=== PATIENT | male | born 1940 | race Caucasian/White ===

== ENCOUNTER → 2024-02-15 12:44 | Day surgery (SDC) | payer SELFPAY ==
[2024-02-15] VITALS (10 sets, daily range): BP systolic 123–191; BP diastolic 67–90; BMI 23.9
--- NOTE | 2024-02-15 16:54 | SUR.PHASEI ---
pt discharged via ambulance transfer back to [facility] at 1640
== END ==
LOC: SDS 12:44
PROVIDERS: ATTENDING PHYSICIAN Internal Medicine Cardiovascular Disease
DX: K80.70 Calculus of gallbladder and bile duct without cholecystitis without obstruction (principal); R74.8 Abnormal levels of other serum enzymes; R93.2 Abnormal findings on diagnostic imaging of liver and biliary tract
CPT/HCPCS: 43264; 43237; 74330; 76000; C1769

== ENCOUNTER 2024-08-02 14:40 | Inpatient (IN) | payer MEDICARE, OTHER, SELFPAY ==
[2024-08-02] VITALS (11 sets, daily range): BP systolic 107–142; BP diastolic 61–101; BMI 23.5
--- NOTE | 2024-08-02 10:23 | W.PN.CARDCBS ---
Today's Communication / Plan
-
PCI VG-OM today
Impression / Plan
-
This is a summary, see scanned H&P
Primary care physician: Bo Wolf MD
Primary appraiser irrigation tax: Alvarado Church MD
HPI: 84-year-old gentleman has a PMH including Permanent AFib (on Eliquis 2.5 mg bid, Diltiazem 360 daily, and Toprol 100 mg daily); Permanent Pacemaker with recent generator change on 07/21/[address] Church; CAD s/p CABGx4 2005; HTN;
hypercholesterolemia; renal insufficiency; and s/p cholecystectomy, TIA, suspected PAD, multiple back surgeries. The patient presented to [facility] ER 07/31 with complaints of chest pain that developed that morning during breakfast. He took his normal
dose of Eliquis prior to arrival 07/31. EKG revealed V-paced with HR 71. CXR showed stable elevation of right hemidiaphragm. CTA of the chest revealed mild cardiomegaly, atherosclerotic coronary artery calcification; no evidence of PE. D-Dimer was
0.61; trop peaked at 1469. He underwent C 08/01 with severe stenosis of VG to . He is being transferred to for high risk PCI of VG today.
Impression:
NSTEMI
CAD/CABG x4 2004
LHC 08/01 with 95% stenosis of sequential VG to OM
HTN
Hypercholesterolemia
Permanent AF with VVIR pacemaker
CKD 3
Hx of TIA
Cognitive dysfunction
Multiple back surgeries with intermittent RLE pain/neuropathy
Plan:
Transfer for PCI VG to today
Admit IVU post procedure
Loaded with Plavix 600mg 08/01, did not receive ASA yesterday or today will give 325mg now
Continue DAPT ASA/Plavix, Eliquis resume per interventional cardiology
triples for 1 week then Eliquis/Plavix
Stop simvastatin, switch to atorvastatin
Continue metoprolol, losartan and new to amlodipine 5mg
In permanent AF with demand V pacing-On low dose Eliquis
Cardiac rehab c/s
f/u [facility] at d/c
DATA:
08/01 Echo: HK of basal and mid inferior, IS, inferolateral segments, preserved EF 50-55%, RV function normal, no significant valve disease
08/01 LHC:
Coronary Angiography:
Dominance: Right
Left Main: Severe diffuse calcified 70 to 80% stenosis.
Left Anterior Descending: The left anterior descending artery is occluded after the takeoff of a small caliber high first diagonal branch, small caliber second diagonal branch, and first major septal rn document improvement specialist. These vessels are very small caliber
with severe diffuse disease but normal KIRSTIN-3 flow.
Left Circumflex: Flush ostial occlusion
Right Coronary: Proximal total occlusion
[place] to LAD: The graft is widely patent. The [place] LAD is extremely small caliber with severe diffuse disease and limited vascular supply. No option for percutaneous intervention due to the small diffuse nature of the [place] vessel disease.
Free radial to PDA: Widely patent. Engaged with a 5 Macedonian multipurpose diagnostic catheter. The anastomosis is at the mid portion of the posterior descending artery and retrograde fills to medium caliber right sided posterior left ventricular
branches.
SVG to diagonal sequential to major obtuse marginal branch: The graft itself is widely patent with mild ostial/proximal 30% stenosis. The first jump shows no filling of the grafted diagonal branch but the graft continues onto anastomosis in the
medium caliber distal OM. There is a preocclusive 95% stenosis in the body of the graft just proximal to the distal anastomosis. The [place] distal vessel has smooth 50% stenosis with normal flow and to distal branches.
Progress Note - Mergers And Acquisitions Manager
Subjective
Date of Service: August 02, 2024
denies cp, sob
Physical Exam
Physical Exam
Deferred as being prepped and draped on laborer general table
--- NOTE | 2024-08-02 14:32 | ITS.CL.ANGIO ---
Liquefied Petroleum Gasfitter - Angioplasty
Angioplasty
Procedure Report:
LEFT HEART CATHETERIZATION
Date of Procedure: August 02, 2024
Procedures performed:
1: Complex percutaneous coronary intervention of the saphenous vein graft to the obtuse marginal branch with placement of a 3.5 x 12 mm Navid drug-eluting stent
Primary Care Physician: Dr. Bo Wolf
Primary Broodmare Foreman: Myself
INDICATION: The patient is an 84-year-old male with a complex past medical history including a recent non-STEMI and permanent atrial fibrillation status post pacemaker placement who underwent diagnostic cath at [facility] yesterday which
revealed a critical vein graft lesion to the OM. In light of the complexity of the intervention he was transferred to [place] for PCI today. He was pretreated with aspirin and Plavix.
ACCESS: The patient was prepped and draped in usual sterile fashion. A 6 [place] Irish sheath was placed in the right radial artery using the Seldinger over the wire technique.
HEMODYNAMIC FINDINGS (mmHg):
Ao(s/d,m): 112/60, 80
ANGIOGRAPHIC FINDINGS:
Coronary Angiography:
Please refer to full diagnostic study performed yesterday at [facility]
Percutaneous Coronary Intervention (PCI): The patient was pretreated with aspirin and Plavix. With some difficulty a 6 Northern Irish JR4 guiding catheter was used to poorly engage the ostium of the vein graft takeoff. A short BMW wire was successfully
advanced into the proximal portion of the graft. This was stabilized with a 2.0 x 12 mm balloon which facilitated delivery of a 6 [place] Irish Guideliner for backup support. With better support, I was able to to wire the distal vein graft lesion with a
BMW wire. Predilation was performed with the 2.0 balloon. Attempts to advance a stent were unsuccessful due to poor backup support. A 3.0 x 12 mm balloon was used to redilate the culprit distal lesion and a pin and pull advancement of the
Guideliner down to the lesion itself. The 3.5 x 12 mm Navid was then successfully delivered and deployed at 12 agustín.
FINAL RESULT: 0% in-stent residual stenosis with KIRSTIN-3 distal flow. Of note, the patient experienced no chest pain during the procedure and the lesion behaved like a chronic lesion as opposed to the culprit in his recent non-STEMI. There was air
embolization into the distal graft which persisted but was not associated with any flow limitation so was left untreated. The patient remained asymptomatic without symptoms.
Fluoroscopy Time (min): 16.6
Radiation Dose (mGy): 454
DAP (Gy.cm2): 44
Closure device: None. A TR band was applied for hemostasis at the right wrist.
Complications: None.
ASSESSMENT:
1: Successful PCI of the SVG to OM with placement of drug-eluting stent as described above.
CONCLUSIONS and RECOMMENDATIONS:
1: Routine post non-STEMI and post drug-eluting stent medical therapy and monitoring. I will plan to give triple therapy with Eliquis, Plavix, and aspirin for 1 week followed by Eliquis and Plavix for a year.
Carla Church M.D.
Copy to: Dr. Bo Wolf
[2024-08-02] MEDS: NSS 1000 IV (15:02)
--- NOTE | 2024-08-02 16:06 | PTCARENOTE ---
Patient received from the section laborer. Right radial band intact. VSS, CHEMIST PHYSICAL, underlying A-fib, BBB, IVF infusing, pain free, call rodriguez in reach
[2024-08-02] MEDS: ELIQUIS 2.5 MG PO (23:31)
--- NOTE | 2024-08-03 00:16 | PTCARENOTE ---
Rec'd pt at change of shift. Pt on TELE monitor in VPace rhythm with PPM (not from current admission), VSS, and AAO*3. Previous RN had difficulty removing R band due to bleeding. Right radial site currently off with dressing CDI. Pt aware of
activity restrictions and agreed to call for staff assistance before ambulation. Rec'd verbal order from dr Tripp for Eliquis 2.5 PO one time and given as ordered. Pt resting with call rodriguez in reach. Plan of care ongoing.
[2024-08-03 02:48] VITALS: BP 149/64
[2024-08-03 03:00] VITALS: BP 149/64
[2024-08-03 04:23] LABS: Blood Urea Nitrogen 45 mg/dl (9-20); Calcium 9.4 mg/dl (8.4-10.2); Carbon Dioxide 24 mmol/L (22-30); Chloride 106 mmol/L (98-107); Estimated Creatinine Clearance 34 ml/min; Glucose 104 mg/dl (70-99); Potassium 4.2 mmol/L (3.5-5.1); Sodium 142 mmol/L (135-145); eGFR 45.62
[2024-08-03 05:13] LABS: Hematocrit 35.5 % (39.0-52.0); Hemoglobin 12.6 g/dL (13.0-18.0); Mean Corp Hgb Conc. 35.5 g/dL (33.0-37.0); Mean Corpuscular Hgb 32.6 pg (27.0-31.0); Mean Platelet Volume 11.1 fL (7.4-10.4); Platelet Count 143 10^3/uL (130-400); Red Blood Cell Count 3.86 10^6/uL (4.70-6.10); White Blood Cell Count 8.9 10^3/uL (4.8-10.8)
--- NOTE | 2024-08-03 05:20 | DOWNTIME ---
There was a [employer] Client Chief Deputy Clerk/Bailiff Downtime on 08/03/2024 from 0100 to 08/03/2024 at 0355. Downtime documentation of patient's care, including medication administrations, has been reconciled in the electronic record per guidelines. Refer to the
patient's paper chart under the miscellaneous tab to see printed paper medication records and downtime forms.
[2024-08-03 06:49] VITALS: BP 158/68
--- NOTE | 2024-08-03 07:44 | W.PN.CARDCBS ---
Addendum entered and electronically signed by SAAD Becerra 08/03/24 11:52:
ADD: amlodipine was started at [facility] but not continued here. Will hold off on starting and re-eval in outpt setting.
Addendum entered and electronically signed by Donnell Tripp DO 08/03/24 11:21:
I saw and examined the patient.
The Underlay Stitcher's note was reviewed and I agree with the note.
Comment:
Plan:
After discussion with Dr Church, ok for ASA, Plavix and Eliquis for one week and then DAPT.
Groin stable.
Reviewed cath with pt.
Outpt follow up with Dr Church
Stable for d/c.
Original Note:
Today's Communication / Plan
-
HOLD eliquis until groin check 08/05
DAPT w/asa, plavix for now, then triples for a week, then plavix/eliquis only
Followup w/Dr. Church as scheduled
home today
Impression / Plan
-
PCP: Bo Wolf MD
CDY: Alvarado Church MD
The patient is an 84-year-old male with a complex PMH sig for AFib, prior PPM, CAD w/CAB x4 (2004), new onset chest pain and presented to [facility] ER. HS troponin 1469, EKG VPaced 70s, no acute changes.
LHC via RFA on 08/01 at [facility] revealed critical vein graft lesion to OM. Due to complex nature of stenosis, pt transferred to for PCI.
LHC 08/02 at - s/p complex PCI of SVG-OM w/FRANSISCA
IMPRESSION:
NSTEMI, 08/01/24
CAD w/CABG x4 (2004)
S/P complex VG-OM PCI w/FRANSISCA, 08/02/24
tele- VPaced, underlying AFib
radial cath site oozy post cath but now stable
Groin stable from prior cath- eliquis resumed last evening
Triple therapy with asa, plavix, eliquis x 1 week, then plavix/eliquis only
continue metoprolol xl 100/d, losartan 100/d
cardiac rehab consult
Followup- 08/05 groin check at [facility]
home today
HTN- stable BP on current meds
new to amlodipine 5/d
HLD- stop simvastatin, started atorvastatin 40/d
Permanent AF, prior PPM implant (gen change 07/21/24)
continue diltiazem
[id number]
triples as noted with eliquis 2.5mg BID (age, creat)
CKD3b- stable post dye load
Prior TIA
Cognitive dysfunction
Multiple back surgeries with intermittent RLE pain/neuropathy
PREADMIT DATA:
08/01 Echo: HK of basal and mid inferior, IS, inferolateral segments, preserved EF 50-55%, RV function normal, no significant valve disease
Progress Note - Community Health Agent
Subjective
Date of Service: August 03, 2024
Denies cp/palps/dyspnea
radial and femoral cath sites stable
oob ambulating
Objective
Labs:
08/03/24 03:05
08/03/24 03:05
Labs
Hgb 12.6 g/dL (13.0-18.0) L 08/03/24 03:05
Hct 35.5 % (39.0-52.0) L 08/03/24 03:05
Plt Count 143 10^3/uL (130-400) 08/03/24 03:05
Sodium 142 mmol/L (135-145) 08/03/24 03:05
Potassium 4.2 mmol/L (3.5-5.1) 08/03/24 03:05
BUN 45 mg/dl (9-20) H 08/03/24 03:05
Creatinine 1.5 mg/dL (0.7-1.3) H 08/03/24 03:05
Glucose 104 mg/dl (70-99) H 08/03/24 03:05
Vital Signs and I&O:
Vital Signs
Temp Pulse Resp BP Pulse Ox
98.6 F 70 20 149/64 98
08/03/24 06:48 08/03/24 04:00 08/03/24 06:48 08/03/24 03:00 08/03/24 06:48
Vital Signs
Temp Pulse Resp BP Pulse Ox
98.6 F 70 20 149/64 98
08/03/24 06:48 08/03/24 04:00 08/03/24 06:48 08/03/24 03:00 08/03/24 06:48
Intake & Output
08/01/24 08/02/24 08/03/24 08/04/24
06:59 06:59 06:59 06:59
Intake Total 790 / 790
Output Total 450 / 450
Balance 340 / 340
Physical Exam
Physical Exam
AAOx3, MAEE 5/5
RRR S1 S2 no murmurs
CTA bilat, non labored
soft abd, + bs
right radial cath site no ht/bleeding, non tender
right femoral cath site no ht/bleeding, non tender
bilat extremities w/palpable distal pulses, no edema
--- NOTE | 2024-08-03 08:55 | PTCARENOTE ---
Received patient this morning resting in bed. Called for assistance to ambulate to the bathroom. Gait unsteady but states he doesn't use any assistive devices at home. Aware to call for assistance while at the hospital. Resting back in bed now,
dressing right wrist is dry and intact.
[2024-08-03] MEDS: CARDIZEM CD 360 MG PO (09:49)
[2024-08-03] MEDS: COZAAR 100 MG PO (09:50)
[2024-08-03] MEDS: CARDURA 2 MG PO (09:50)
[2024-08-03] MEDS: FLOMAX 0.4 MG PO (09:51)
[2024-08-03] MEDS: LOW STRENGTH ASPIRIN 81 MG PO (09:51)
[2024-08-03] MEDS: DITROPAN 10 MG PO (09:51)
[2024-08-03] MEDS: PEPCID 20 MG PO (09:51)
[2024-08-03] MEDS: ORETIC 25 MG PO (09:51)
[2024-08-03] MEDS: TOPROL XL 100 MG PO (09:52)
[2024-08-03] MEDS: PLAVIX 75 MG PO (09:52)
[2024-08-03] MEDS: PROSCAR 5 MG PO (09:52)
[2024-08-03 10:18] LABS: ACT-LR - POC 274 Seconds (116-155)
[2024-08-03] MEDS: ELIQUIS 2.5 MG PO (11:11)
[2024-08-03 11:33] VITALS: BP 152/99
--- NOTE | 2024-08-03 11:34 | CM ---
Chart reviewed. Patient is independent of ADLS, lives with his in a [address], 0 [address]EL[address], 0 DME. Patient currently with no needs. Patient to return home.
--- NOTE | 2024-08-03 11:51 | W.DS.TRANS ---
DC Summary - Weight Loss Sales Consultant
-
Discharge Instructions:
Discharge Diagnosis/Procedures NSTEMI, Angioplasty and stent x1 to Vein graft-
Obtuse Marginal artery
Diet Low Cholesterol
Driving Restrictions No driving for 24 hours
Other Services Cardiac Rehab
Instructions:
Stand-Alone Forms: DC Instructions- Cath/EP Lab
Changes to Home Medications: Yes
Discharge Medications:
DC Medications w/original date entered in [employer]
diltiazem HCl 360 mg tablet,extended release 24 hr (Cardizem LA) 360 mg PO DAILY 05/07/11
cholecalciferol (vitamin D3) 50 mcg (2,000 unit) tablet 2,000 unit PO DAILY 11/01/13
apixaban 2.5 mg tablet (Eliquis) 2.5 mg PO BID 02/15/24
doxazosin 2 mg tablet 2 mg PO HS 02/15/24
finasteride 5 mg tablet 5 mg PO DAILY 02/15/24
hydrochlorothiazide 25 mg tablet 25 mg PO DAILY 02/15/24
multivitamin 1 tab PO DAILY 02/15/24
oxybutynin chloride 5 mg tablet,extended release 24 hr 10 mg PO DAILY 02/15/24
pantoprazole 40 mg tablet,delayed release 40 mg PO DAILY 02/15/24
tamsulosin 0.4 mg capsule 0.4 mg PO DAILY 02/15/24
famotidine 40 mg tablet (Pepcid) 40 mg PO DAILY 08/02/24
aspirin 81 mg chewable tablet 81 mg PO DAILY #1 tab 08/03/24
atorvastatin 40 mg tablet 40 mg PO QPM #90 tabs 08/03/24
clopidogrel 75 mg tablet 75 mg PO DAILY #90 tabs 08/03/24
losartan 100 mg tablet 100 mg PO DAILY 08/03/24
metoprolol succinate 100 mg tablet,extended release 24 hr 100 mg PO DAILY 08/03/24
Home Medication Changes
NEW: clopidogrel, aspirin, atorvastatin
STOP: simvastatin
Pending Results: No
--- NOTE | 2024-08-03 13:50 | PTCARENOTE ---
Patient seen by cardiology and is ok for discharge. Reviewed discharge instructions, new medications and follow up appointments with the patient and he states his understanding. Patient discharged home with his daughter.
[2024-08-03 15:20] LABS: ACT-LR - POC > 397 Seconds (116-155)
[2024-08-03 15:23] LABS: ACT-LR - POC > 397 Seconds (116-155)
== END 2024-08-03 14:00 | disposition home or self-care (01) | DRG 322 ==
LOC: IVU 14:40
PROVIDERS: Internal Medicine Interventional Cardiology; Nurse Practitioner Adult Health; ADMITTING PHYSICIAN Student in an Organized Health Care Education/Training Program; ATTENDING PHYSICIAN Internal Medicine Interventional Cardiology; FAMILY PHYSICIAN Internal Medicine
PROC: 4A023N7 Measurement of Cardiac Sampling and Pressure, Left Heart, Percutaneous Approach (ICD-10-PCS; 2024-08-02)
PROC: B2111ZZ Fluoroscopy of Multiple Coronary Arteries using Low Osmolar Contrast (ICD-10-PCS; 2024-08-02)
PROC: B2151ZZ Fluoroscopy of Left Heart using Low Osmolar Contrast (ICD-10-PCS; 2024-08-02)
PROC: 027034Z Dilation of Coronary Artery, One Artery with Drug-eluting Intraluminal Device, Percutaneous Approach (ICD-10-PCS; 2024-08-02)
DX: I21.4 Non-ST elevation (NSTEMI) myocardial infarction (principal); I48.21 Permanent atrial fibrillation; I25.10 Atherosclerotic heart disease of native coronary artery without angina pectoris; N18.32 Chronic kidney disease, stage 3b; I12.9 Hypertensive chronic kidney disease with stage 1 through stage 4 chronic kidney disease, or unspecified chronic kidney disease; E78.5 Hyperlipidemia, unspecified; Z95.0 Presence of cardiac pacemaker; Z86.73 Personal history of transient ischemic attack (TIA), and cerebral infarction without residual deficits
CPT/HCPCS: 80048; 85027; 85347; 93005; C1725; C1769; C1874; C1887; C1894; C9604; J0153; Q9967